=== PATIENT | male | born 1975 | race Caucasian/White ===

== ENCOUNTER → 2017-02-18 | Outpatient (REF) ==
--- NOTE | 2017-02-18 16:46 | REP ---
Lumbar spine series: Three views. History: Degenerative disc disease. No comparison radiographs. Findings: There is a rim calcified density in the right upper quadrant of the abdomen somewhat anteriorly measuring 1.9 cm in greatest diameter. This may reflect a gallstone or a hepatic calcification. There is some vascular calcification in a normal caliber aorta. Lumbar vertebral body heights are preserved. Alignment is normal. There is degenerative disc disease at L4-5 and L5-S1 with disc space narrowing, vacuum phenomena, anterior and posterior osteophytes at these two levels. Discogenic spurring is also noted at the lower thoracic levels. Pedicles and posterior elements are intact. Psoas margins are symmetric. Sacrum and SI joints are unremarkable. Impression: Degenerative disc disease at L4-5 and L5-S1 in the lumbar spine. Possible large calcified gallstone in the right upper quadrant. Signed by Merrill Brown MD 02/18/2017 05:01 P
--- NOTE | 2017-02-18 16:47 | REP ---
Right hand series: Four views. History: Degenerative disc disease. Findings: Four views of the right hand demonstrate overall normal mineralization. There is widening of the navicular lunate interval consistent with disruption of the navicular lunate ligament. There is a small subcortical cyst in the distal end of the third metacarpal. No erosive changes seen. No evidence of arthropathy is seen. No bony destructive lesion or fracture noted. 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 Signed by Merrill Brown MD 02/18/2017 05:01 P
== END ==
LOC: M SMT 10:30
PROVIDERS: ATTEND Internal Medicine
DX: Z02.1 Encounter for pre-employment examination (principal)